=== PATIENT | female | born 1965 | race Caucasian/White ===

== ENCOUNTER 2018-04-07 21:59 | Emergency (ER) | payer SELFPAY ==
[2018-04-07] MEDS ORDERED: Lidocaine 1% with EPINEPHrine 1:100,000 20 ML MDV INJECT ONE (22:11)
--- NOTE | 2018-04-07 22:14 | EDM.PDOC ---
ED HPI GENERAL MEDICAL PROBLEM - General Chief Complaint: Laceration Stated Complaint: RIGHT HAND CUT ON GLASS Time Seen by Provider: 04/07/18 22:07 Source of Information: Reports: Patient History Limitations: Reports: Intoxication - History of Present Illness INITIAL COMMENTS - FREE TEXT/NARRATIVE: Patient was washing dishes and was cleaning a cup that actually had a broken glass piece and cut her right index finger right over the MCP joint. Mr. cheng, no other injury noted. Patient otherwise has been healthy. Has a history of some mild asthma, her last tetanus was 5 years ago. right Handed. 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: Dressing(s) right hand Pain Score (Numeric/FACES): 4 - Related Data Allergies Allergy/AdvReac Type Severity Reaction Status Date / Time No Known Allergies Allergy Verified 04/07/18 22:11 Home Meds: Home Meds Albuterol [Ventolin HFA] 2 puff INH ASDIRECTED PRN 04/07/18 [History] ED ROS GENERAL - Review of Systems Review Of Systems: See Below Musculoskeletal: Reports: Joint Pain Skin: Reports: Wound Neurological: Denies: Numbness, Tingling ED EXAM, SKIN/RASH Exam: See Below Exam Limited By: No Limitations General Appearance: Alert, WD/WN, No Apparent Distress Peripheral Pulses: 2+: Radial (R) Extremities: Normal Inspection, Normal Range of Motion, Other (Laceration just over the MCP joint of the second finger on the right hand. Just into the subcutaneous tissue measures 1.6 x 3 mm. Extensor mechanisms otherwise are intact. Assessment foreign body or glass noted with good light source.) ED SKIN PROCEDURES - Laceration/Wound Repair Right Hand Lac/Wound length In cm: 1.6 Appearance: Subcutaneous, Clean Distal NVT: Neuro & Vascular Intact, No Tendon Injury Anesthetic Type: Local Local Anesthesia - Lidocaine (Xylocaine): 1% with EPI Local Anesthetic Volume: 3cc Skin Prep: Saline, Sterile Drape Exploration/Debridement/Repair: Wound Explored, In a Bloodless Field, Explored to Base, No Foreign Material Found, Multiple Flaps Aligned Closed with: Sutures Suture Size: other (5-0) # of Sutures: 4 Sterile Dressing Applied: Nurse Tetanus Status Addressed: Yes Complications: No Progress/Comments: Patient tolerated procedure well Course - Vital Signs Text/Narrative:: Patient with a laceration over the knuckle of the right index finger. Does look like it's right over the joint and no joint involvement however but does look like it would require suturing. Patient had a tetanus within the last 5 years. Last Recorded V/S: Last Vital Signs Temp 97.6 F 04/07/18 22:06 Pulse 98 04/07/18 22:06 Resp 18 04/07/18 22:06 BP 151/89 H 04/07/18 22:06 Pulse Ox 97 04/07/18 22:06 - Orders/Labs/Meds Meds: Medications Discontinued Medications Generic Name Dose Route Start Last Admin Trade Name Patric PRN Reason Stop Dose Admin Lidocaine/Epinephrine 20 ml 04/07/18 22:11 Xylocaine 1% With Epinephrine 1:100,000 INJECT 04/07/18 22:12 ONETIME ONE Departure - Departure Time of Disposition: 22:55 Disposition: Home, Self-Care 01 Condition: Good Clinical Impression: Laceration of right index finger Qualifiers: Encounter type: initial encounter Damage to nail status: without damage Foreign body presence: without foreign body Qualified Code(s): S61.210A - Laceration without foreign body of right index finger without damage to nail, initial encounter - Discharge Information *PRESCRIPTION DRUG MONITORING PROGRAM REVIEWED*: Not Applicable *COPY OF PRESCRIPTION DRUG MONITORING REPORT IN PATIENT JUSTEN: Not Applicable Instructions: Laceration Care, Adult, Wound Care, Adult Referrals: Dennise Hernandez NP [Primary Care Provider] - Forms: ED Department Discharge, ED Return to Work/School Form Additional Instructions: Keep clean and dry for 24 hours, follow-up for suture removal in 7-10 days. Return sooner however if any signs of infection such as bleeding, pus, or swelling, pain, redness, red streaking, worse
== END 2018-04-07 23:06 | disposition home or self-care (01) ==
LOC: JD.ED 21:59
DX: S61.210A Laceration without foreign body of right index finger without damage to nail, initial encounter (principal); W25.XXXA Contact with sharp glass, initial encounter
CPT/HCPCS: 12001; 99283-25

== ENCOUNTER 2020-08-20 11:00 | Emergency (ER) | payer SELFPAY ==
[2020-08-20] MEDS ORDERED: Ondansetron 4 MG/2 ML SDV IVPUSH ONE (11:47)
[2020-08-20] MEDS ORDERED: Ketorolac 30 MG/ML SDV IVPUSH ONE (11:47)
[2020-08-20] MEDS ORDERED: Sodium Chloride 0.9% 1,000 ML IV ONE ×2 (11:47→14:47)
--- NOTE | 2020-08-20 11:50 | EDM.PDOC ---
ED HPI GENERAL MEDICAL PROBLEM - General Chief Complaint: Respiratory Problem Stated Complaint: EXPOSED TO COVID/HAVING SYMPTOMS Time Seen by Provider: 08/20/20 11:28 Source of Information: Reports: Patient, RN Notes Reviewed History Limitations: Reports: No Limitations - History of Present Illness INITIAL COMMENTS - FREE TEXT/NARRATIVE: Patient is a 54-year-old female who presents to the ED for her ongoing [id number] symptoms. Patient notes around 10 days ago, her children are home from college, and she believes she became exposed then. She has been symptomatic for the last 5 days with dry cough, headache, weakness, fatigue, chest discomfort and shortness of breath. She is also complaining of nausea/vomiting and has not been able to keep much for food or fluids down. She states that if she sips club soda slow she can sometimes keep this down. She is also complaining of her loss of smell and taste. She has not been evaluated for this illness prior to today. She is also complaining of not being able to lay flat due to shortness of breath and cough. She has a history of asthma, otherwise she denies any other past medical history. Primary care providers are Dr. Wilson and Dennise Hernandez. - Related Data Allergies Allergy/AdvReac Type Severity Reaction Status Date / Time No Known Allergies Allergy Verified 08/20/20 11:27 Home Meds: Home Meds Albuterol [Ventolin HFA] 2 puff INH ASDIRECTED PRN 04/07/18 [History] Past Medical History Respiratory History: Reports: Asthma Social & Family History - Family History Family Medical History: No Pertinent Family History - Tobacco Use Tobacco Use Status *Q: Never Tobacco User Second Hand Smoke Exposure: No - Caffeine Use Caffeine Use: Reports: None - Recreational Drug Use Recreational Drug Use: No ED ROS GENERAL - Review of Systems Review Of Systems: Comprehensive ROS is negative, except as noted in HPI. ED EXAM, GENERAL - Physical Exam Exam: See Below Exam Limited By: No Limitations General Appearance: Alert, WD/WN, No Apparent Distress Respiratory/Chest: No Respiratory Distress, Lungs Clear, Normal Breath Sounds, No Accessory Muscle Use, Chest Non-Tender Cardiovascular: Normal Peripheral Pulses, Regular Rate, Rhythm, No Edema Peripheral Pulses: 2+: Radial (L), Radial (R) Extremities: Normal Inspection, Normal Capillary Refill Neurological: Alert, Oriented, Normal Cognition, No Motor/Sensory Deficits Psychiatric: Normal Affect, Normal Mood Skin Exam: Warm, Dry, Intact, Normal Color, No Rash #1 Interpretation EKG Date: 08/20/20 Time: 12:06 Rhythm: NSR (sinus tach) Rate (Beats/Min): 104 [place]: Normal P-Wave: Present QRS: Normal ST-T: Normal QT: Prolonged (519) Comparison: NA - No Prior EKG EKG Interpretation Comments: No obvious ischemia or acute ST changes noted, reviewed by myself and Dr. Colbert. Course - Vital Signs Last Recorded V/S: Last Vital Signs Temp 97.5 F 08/20/20 11:25 Pulse 108 H 08/20/20 13:30 Resp 16 08/20/20 12:45 BP 128/78 08/20/20 13:30 Pulse Ox 93 L 08/20/20 13:30 - Orders/Labs/Meds Orders: Active Orders 24 hr Category Date Time Status EKG Documentation Completion [RC] AM Care 08/20/20 11:45 Active Peripheral IV Care [RC] . DIRECTED Care 08/20/20 11:47 Active Ang Chest [CT] Stat Exams 08/20/20 14:26 Ordered LIPASE [CHEM] Stat Lab 08/20/20 14:44 Ordered Sodium Chloride 0.9% [Normal Saline] 1,000 ml Med 08/20/20 14:47 Active IV ONETIME Sodium Chloride 0.9% [Saline Flush] Med 08/20/20 11:47 Active 10 ml FLUSH ASDIRECTED PRN Peripheral IV Insertion Adult [OM.PC] Routine Oth 08/20/20 11:46 Ordered Medication Orders Sodium Chloride (Normal Saline) 1,000 mls @ 500 mls/hr IV ONETIME ONE Stop: 08/20/20 16:46 Sodium Chloride (Saline Flush) 10 ml FLUSH ASDIRECTED PRN PRN Reason: Keep Vein Open Last Admin: 08/20/20 13:59 Dose: 10 ml Documented by: Admin: 08/20/20 12:15 Dose: 10 ml Documented by: JAVED Labs: Laboratory Tests 08/20/20 08/20/20 08/20/20 Range/Units 12:05 12:10 12:10 WBC 13.93 H (3.98-10.04) K/mm3 RBC 3.65 L (3.98-5.22) M/mm3 Hgb 11.5 (11.2-15.7) gm/dl Hct 30.8 L (34.1-44.9) % MCV 84.4 (79.4-94.8) fl MCH 31.5 (25.6-32.2) pg MCHC 37.3 H (32.2-35.5) g/dl RDW Std Deviation 56.6 H (36.4-46.3) fL Plt Count 323 (182-369) K/mm3 MPV 9.9 (9.4-12.3) fl Neutrophils % (Manual) 88 H (40-60) % Band Neutrophils % 0 (0-10) % Lymphocytes % (Manual) 4 L (20-40) % Atypical Lymphs % 0 % Monocytes % (Manual) 5 (2-10) % Eosinophils % (Manual) 0 L (0.7-5.8) % Basophils % (Manual) 3 H (0.1-1.2) Platelet Estimate Adequate Plt Morphology Comment See note Hypochromasia 1+ slight Anisocytosis 2+ moderate Macrocytosis 2+ moderate RBC Morph Comment Abnormal PT (9.7-12.0) SECONDS INR APTT (21.7-31.4) SECONDS D-Dimer, Quantitative (0.19-0.50) mg/L Sodium (136-145) mEq/L Potassium (3.5-5.1) mEq/L Chloride (98-107) mEq/L Carbon Dioxide (21-32) mEq/L Anion Gap (5-15) BUN (7-18) mg/dL Creatinine (0.55-1.02) mg/dL Est Cr Clr Drug Dosing mL/min Estimated GFR (MDRD) (>60) mL/min BUN/Creatinine Ratio (14-18) Glucose (74-106) mg/dL Serum Osmolality (280-300) mosm/kg Lactic Acid (0.4-2.0) mmol/L Calcium (8.5-10.1) mg/dL Magnesium (1.8-2.4) mg/dl Ferritin (8-252) ng/ml Total Bilirubin (0.2-1.0) mg/dL GGT (5-55) U/L AST (15-37) U/L ALT (14-59) U/L Alkaline Phosphatase (46-116) U/L Lactate Dehydrogenase (81-234) U/L Troponin I (0.00-0.056) ng/mL C-Reactive Protein 8.2 H* (<1.0) mg/dL NT-Pro-B Natriuret Pep (0-125) pg/mL Total Protein (6.4-8.2) g/dl Albumin (3.4-5.0) g/dl Globulin gm/dL Albumin/Globulin Ratio (1-2) Urine Color (Yellow) Urine Appearance (Clear) Urine pH (5.0-8.0) Ur Specific [place] (1.005-1.030) Urine Protein (Negative) Urine Glucose (UA) (Negative) Urine Ketones (Negative) Urine Occult Blood (Negative) Urine Nitrite (Negative) Urine Bilirubin (Negative) Urine Urobilinogen (0.2-1.0) Ur Leukocyte Esterase (Negative) Urine RBC (0-5) /hpf Urine WBC (0-5) /hpf Ur Squamous Epith Cells (0-5) /hpf Urine Bacteria (FEW) /hpf Urine Mucus (FEW) /hpf Salicylates (2.8-20) mg/dL Acetaminophen (10-30) ug/mL Ethyl Alcohol (0.00) gm% Hepatitis C Antibody (NEGATIVE) Influenza Type A RNA Negative (NEGATIVE) Influenza Type B RNA Negative (NEGATIVE) SARS-CoV-2 RNA (DMITRY) Negative (NEGATIVE) 08/20/20 08/20/20 08/20/20 Range/Units 12:10 12:10 12:10 WBC (3.98-10.04) K/mm3 RBC (3.98-5.22) M/mm3 Hgb (11.2-15.7) gm/dl Hct (34.1-44.9) % MCV (79.4-94.8) fl MCH (25.6-32.2) pg MCHC (32.2-35.5) g/dl RDW Std Deviation (36.4-46.3) fL Plt Count (182-369) K/mm3 MPV (9.4-12.3) fl Neutrophils % (Manual) (40-60) % Band Neutrophils % (0-10) % Lymphocytes % (Manual) (20-40) % Atypical Lymphs % % Monocytes % (Manual) (2-10) % Eosinophils % (Manual) (0.7-5.8) % Basophils % (Manual) (0.1-1.2) Platelet Estimate Plt Morphology Comment Hypochromasia Anisocytosis Macrocytosis RBC Morph Comment PT 19.8 H (9.7-12.0) SECONDS INR 1.87 APTT 43.6 H (21.7-31.4) SECONDS D-Dimer, Quantitative 6.94 H (0.19-0.50) mg/L Sodium 120 L (136-145) mEq/L Potassium 3.4 L (3.5-5.1) mEq/L Chloride 85 L (98-107) mEq/L Carbon Dioxide 26 (21-32) mEq/L Anion Gap 12.4 (5-15) BUN 3 L (7-18) mg/dL Creatinine 0.7 (0.55-1.02) mg/dL Est Cr Clr Drug Dosing 80.26 mL/min Estimated GFR (MDRD) > 60 (>60) mL/min BUN/Creatinine Ratio 4.3 L (14-18) Glucose 85 (74-106) mg/dL Serum Osmolality (280-300) mosm/kg Lactic Acid (0.4-2.0) mmol/L Calcium 7.9 L (8.5-10.1) mg/dL Magnesium 1.8 (1.8-2.4) mg/dl Ferritin (8-252) ng/ml Total Bilirubin 5.5 H (0.2-1.0) mg/dL GGT (5-55) U/L AST 306 H (15-37) U/L ALT 56 (14-59) U/L Alkaline Phosphatase 320 H (46-116) U/L Lactate Dehydrogenase 140 (81-234) U/L Troponin I < 0.017 (0.00-0.056) ng/mL C-Reactive Protein (<1.0) mg/dL NT-Pro-B Natriuret Pep 324 H (0-125) pg/mL Total Protein 7.5 (6.4-8.2) g/dl Albumin 1.6 L (3.4-5.0) g/dl Globulin 5.9 gm/dL Albumin/Globulin Ratio 0.3 L (1-2) Urine Color (Yellow) Urine Appearance (Clear) Urine pH (5.0-8.0) Ur Specific [place] (1.005-1.030) Urine Protein (Negative) Urine Glucose (UA) (Negative) Urine Ketones (Negative) Urine Occult Blood (Negative) Urine Nitrite (Negative) Urine Bilirubin (Negative) Urine Urobilinogen (0.2-1.0) Ur Leukocyte Esterase (Negative) Urine RBC (0-5) /hpf Urine WBC (0-5) /hpf Ur Squamous Epith Cells (0-5) /hpf Urine Bacteria (FEW) /hpf Urine Mucus (FEW) /hpf Salicylates (2.8-20) mg/dL Acetaminophen (10-30) ug/mL Ethyl Alcohol (0.00) gm% Hepatitis C Antibody (NEGATIVE) Influenza Type A RNA (NEGATIVE) Influenza Type B RNA (NEGATIVE) SARS-CoV-2 RNA (DMITRY) (NEGATIVE) 08/20/20 08/20/20 08/20/20 Range/Units 12:10 12:10 12:10 WBC (3.98-10.04) K/mm3 RBC (3.98-5.22) M/mm3 Hgb (11.2-15.7) gm/dl Hct (34.1-44.9) % MCV (79.4-94.8) fl MCH (25.6-32.2) pg MCHC (32.2-35.5) g/dl RDW Std Deviation (36.4-46.3) fL Plt Count (182-369) K/mm3 MPV (9.4-12.3) fl Neutrophils % (Manual) (40-60) % Band Neutrophils % (0-10) % Lymphocytes % (Manual) (20-40) % Atypical Lymphs % % Monocytes % (Manual) (2-10) % Eosinophils % (Manual) (0.7-5.8) % Basophils % (Manual) (0.1-1.2) Platelet Estimate Plt Morphology Comment Hypochromasia Anisocytosis Macrocytosis RBC Morph Comment PT (9.7-12.0) SECONDS INR APTT (21.7-31.4) SECONDS D-Dimer, Quantitative (0.19-0.50) mg/L Sodium (136-145) mEq/L Potassium (3.5-5.1) mEq/L Chloride (98-107) mEq/L Carbon Dioxide (21-32) mEq/L Anion Gap (5-15) BUN (7-18) mg/dL Creatinine (0.55-1.02) mg/dL Est Cr Clr Drug Dosing mL/min Estimated GFR (MDRD) (>60) mL/min BUN/Creatinine Ratio (14-18) Glucose (74-106) mg/dL Serum Osmolality 278 L (280-300) mosm/kg Lactic Acid (0.4-2.0) mmol/L Calcium (8.5-10.1) mg/dL Magnesium (1.8-2.4) mg/dl Ferritin 314 H (8-252) ng/ml Total Bilirubin (0.2-1.0) mg/dL GGT (5-55) U/L AST (15-37) U/L ALT (14-59) U/L Alkaline Phosphatase (46-116) U/L Lactate Dehydrogenase (81-234) U/L Troponin I (0.00-0.056) ng/mL C-Reactive Protein (<1.0) mg/dL NT-Pro-B Natriuret Pep (0-125) pg/mL Total Protein (6.4-8.2) g/dl Albumin (3.4-5.0) g/dl Globulin gm/dL Albumin/Globulin Ratio (1-2) Urine Color (Yellow) Urine Appearance (Clear) Urine pH (5.0-8.0) Ur Specific [place] (1.005-1.030) Urine Protein (Negative) Urine Glucose (UA) (Negative) Urine Ketones (Negative) Urine Occult Blood (Negative) Urine Nitrite (Negative) Urine Bilirubin (Negative) Urine Urobilinogen (0.2-1.0) Ur Leukocyte Esterase (Negative) Urine RBC (0-5) /hpf Urine WBC (0-5) /hpf Ur Squamous Epith Cells (0-5) /hpf Urine Bacteria (FEW) /hpf Urine Mucus (FEW) /hpf Salicylates (2.8-20) mg/dL Acetaminophen 0 L (10-30) ug/mL Ethyl Alcohol (0.00) gm% Hepatitis C Antibody (NEGATIVE) Influenza Type A RNA (NEGATIVE) Influenza Type B RNA (NEGATIVE) SARS-CoV-2 RNA (DMITRY) (NEGATIVE) 08/20/20 08/20/20 08/20/20 Range/Units 12:10 12:10 12:10 WBC (3.98-10.04) K/mm3 RBC (3.98-5.22) M/mm3 Hgb (11.2-15.7) gm/dl Hct (34.1-44.9) % MCV (79.4-94.8) fl MCH (25.6-32.2) pg MCHC (32.2-35.5) g/dl RDW Std Deviation (36.4-46.3) fL Plt Count (182-369) K/mm3 MPV (9.4-12.3) fl Neutrophils % (Manual) (40-60) % Band Neutrophils % (0-10) % Lymphocytes % (Manual) (20-40) % Atypical Lymphs % % Monocytes % (Manual) (2-10) % Eosinophils % (Manual) (0.7-5.8) % Basophils % (Manual) (0.1-1.2) Platelet Estimate Plt Morphology Comment Hypochromasia Anisocytosis Macrocytosis RBC Morph Comment PT (9.7-12.0) SECONDS INR APTT (21.7-31.4) SECONDS D-Dimer, Quantitative (0.19-0.50) mg/L Sodium (136-145) mEq/L Potassium (3.5-5.1) mEq/L Chloride (98-107) mEq/L Carbon Dioxide (21-32) mEq/L Anion Gap (5-15) BUN (7-18) mg/dL Creatinine (0.55-1.02) mg/dL Est Cr Clr Drug Dosing mL/min Estimated GFR (MDRD) (>60) mL/min BUN/Creatinine Ratio (14-18) Glucose (74-106) mg/dL Serum Osmolality (280-300) mosm/kg Lactic Acid (0.4-2.0) mmol/L Calcium (8.5-10.1) mg/dL Magnesium (1.8-2.4) mg/dl Ferritin (8-252) ng/ml Total Bilirubin (0.2-1.0) mg/dL GGT 245 H (5-55) U/L AST (15-37) U/L ALT (14-59) U/L Alkaline Phosphatase (46-116) U/L Lactate Dehydrogenase (81-234) U/L Troponin I (0.00-0.056) ng/mL C-Reactive Protein (<1.0) mg/dL NT-Pro-B Natriuret Pep (0-125) pg/mL Total Protein (6.4-8.2) g/dl Albumin (3.4-5.0) g/dl Globulin gm/dL Albumin/Globulin Ratio (1-2) Urine Color (Yellow) Urine Appearance (Clear) Urine pH (5.0-8.0) Ur Specific [place] (1.005-1.030) Urine Protein (Negative) Urine Glucose (UA) (Negative) Urine Ketones (Negative) Urine Occult Blood (Negative) Urine Nitrite (Negative) Urine Bilirubin (Negative) Urine Urobilinogen (0.2-1.0) Ur Leukocyte Esterase (Negative) Urine RBC (0-5) /hpf Urine WBC (0-5) /hpf Ur Squamous Epith Cells (0-5) /hpf Urine Bacteria (FEW) /hpf Urine Mucus (FEW) /hpf Salicylates < 0.2 L (2.8-20) mg/dL Acetaminophen (10-30) ug/mL Ethyl Alcohol 0.09 (0.00) gm% Hepatitis C Antibody (NEGATIVE) Influenza Type A RNA (NEGATIVE) Influenza Type B RNA (NEGATIVE) SARS-CoV-2 RNA (DMITRY) (NEGATIVE) 08/20/20 08/20/20 08/20/20 Range/Units 12:10 12:10 14:15 WBC (3.98-10.04) K/mm3 RBC (3.98-5.22) M/mm3 Hgb (11.2-15.7) gm/dl Hct (34.1-44.9) % MCV (79.4-94.8) fl MCH (25.6-32.2) pg MCHC (32.2-35.5) g/dl RDW Std Deviation (36.4-46.3) fL Plt Count (182-369) K/mm3 MPV (9.4-12.3) fl Neutrophils % (Manual) (40-60) % Band Neutrophils % (0-10) % Lymphocytes % (Manual) (20-40) % Atypical Lymphs % % Monocytes % (Manual) (2-10) % Eosinophils % (Manual) (0.7-5.8) % Basophils % (Manual) (0.1-1.2) Platelet Estimate Plt Morphology Comment Hypochromasia Anisocytosis Macrocytosis RBC Morph Comment PT (9.7-12.0) SECONDS INR APTT (21.7-31.4) SECONDS D-Dimer, Quantitative (0.19-0.50) mg/L Sodium (136-145) mEq/L Potassium (3.5-5.1) mEq/L Chloride (98-107) mEq/L Carbon Dioxide (21-32) mEq/L Anion Gap (5-15) BUN (7-18) mg/dL Creatinine (0.55-1.02) mg/dL Est Cr Clr Drug Dosing mL/min Estimated GFR (MDRD) (>60) mL/min BUN/Creatinine Ratio (14-18) Glucose (74-106) mg/dL Serum Osmolality (280-300) mosm/kg Lactic Acid 5.3 H* (0.4-2.0) mmol/L Calcium (8.5-10.1) mg/dL Magnesium (1.8-2.4) mg/dl Ferritin (8-252) ng/ml Total Bilirubin (0.2-1.0) mg/dL GGT (5-55) U/L AST (15-37) U/L ALT (14-59) U/L Alkaline Phosphatase (46-116) U/L Lactate Dehydrogenase (81-234) U/L Troponin I (0.00-0.056) ng/mL C-Reactive Protein (<1.0) mg/dL NT-Pro-B Natriuret Pep (0-125) pg/mL Total Protein (6.4-8.2) g/dl Albumin (3.4-5.0) g/dl Globulin gm/dL Albumin/Globulin Ratio (1-2) Urine Color Dark yellow (Yellow) Urine Appearance Clear (Clear) Urine pH 6.0 (5.0-8.0) Ur Specific [place] 1.015 (1.005-1.030) Urine Protein Negative (Negative) Urine Glucose (UA) Negative (Negative) Urine Ketones Negative (Negative) Urine Occult Blood Negative (Negative) Urine Nitrite Negative (Negative) Urine Bilirubin 2+ H (Negative) Urine Urobilinogen 1.0 (0.2-1.0) Ur Leukocyte Esterase Negative (Negative) Urine RBC Not seen (0-5) /hpf Urine WBC 0-5 (0-5) /hpf Ur Squamous Epith Cells 5-10 H (0-5) /hpf Urine Bacteria Rare (FEW) /hpf Urine Mucus Not seen (FEW) /hpf Salicylates (2.8-20) mg/dL Acetaminophen (10-30) ug/mL Ethyl Alcohol (0.00) gm% Hepatitis C Antibody Negative (NEGATIVE) Influenza Type A RNA (NEGATIVE) Influenza Type B RNA (NEGATIVE) SARS-CoV-2 RNA (DMITRY) (NEGATIVE) Meds: Medications Generic Name Dose Route Start Last Admin Trade Name Freq PRN Reason Stop Dose Admin Sodium Chloride 1,000 mls @ 500 mls/hr 08/20/20 14:47 Normal Saline IV 08/20/20 16:46 ONETIME ONE Sodium Chloride 10 ml 08/20/20 11:47 08/20/20 13:59 Saline Flush FLUSH 10 ml ASDIRECTED PRN Administration Keep Vein Open Discontinued Medications Generic Name Dose Route Start Last Admin Trade Name Freq PRN Reason Stop Dose Admin Sodium Chloride 1,000 mls @ 500 mls/hr 08/20/20 11:47 08/20/20 12:14 Normal Saline IV 08/20/20 13:46 500 mls/hr ONETIME ONE Administration Iopamidol 100 ml 08/20/20 13:35 08/20/20 13:59 Isovue-300 (61%) IVPUSH 08/20/20 13:36 100 ml ONETIME ONE Administration Iopamidol 25 ml 08/20/20 13:35 08/20/20 13:59 Isovue-300 (61%) IVPUSH 08/20/20 13:36 25 ml ONETIME ONE Administration Ketorolac Tromethamine 30 mg 08/20/20 11:47 08/20/20 12:15 Toradol IVPUSH 08/20/20 11:48 30 mg ONETIME ONE Administration Ondansetron HCl 4 mg 08/20/20 11:47 08/20/20 12:14 Zofran IVPUSH 08/20/20 11:48 4 mg ONETIME ONE Administration - Re-Assessments/Exams Free Text/Narrative Re-Assessment/Exam: 08/20/20 11:49 Patient presents to the ED for evaluation of her ongoing [id number] symptoms. We will go ahead get an IV placed, obtain labs, chest x-ray, EKG to evaluate for COVID-19. Patient does have a history of asthma, and would likely be a candidate for bamlanivimab treatment. 08/20/20 13:06 Patient's labs have returned, white cell count is 13.9 with 88% neutrophils, PT is elevated at 19.8, PTT elevated at 43.6, D-dimer elevated at 6.94. Patient's sodium level is markedly decreased at 120, ferritin is elevated at 314, bilirubin elevated at 5.5, AST elevated at 306, ALP elevated at 320, BNP elevated at 324. LDH was within normal limits, patient's Covid screen is negative for today's purposes however symptoms and labs would give her clinical diagnosis of COVID-19. Due to her hyponatremia, she would likely benefit from being hospitalized with close observation. I will call our hospitalist about acceptance. 08/20/20 14:20 Due to the patient's liver enzymes, I did order abdomen pelvis CT with IV contrast I did look over these images with Dr. Colbert, and there does appear to be quite a bit of free fluid in the abdomen compatible with ascites. The gallbladder is distended. No other acute abnormalities are appreciated. He did suggest doing a hepatitis C test for evaluation however it is likely that the patient is a drinker causing some of the issues. Nursing staff did notice some baseline shaking when she reevaluated her. I have ordered a blood alcohol level off of the labs already drawn. Her Tylenol and salicylate level were unremarkable, I thought maybe she would have some derangement due to excessive Excedrin Migraine use. 08/20/20 15:14 Dr. Barr thought that the patient would benefit from ICU status hospitalization, I did call [facility] [place] and Talked with the heel layer, and he was concerned about why the patient needed ICU status, and wanted to talk to Dr. Barr and requested that he call. I did call Dr. Wren back, and he went over the lab results that I was already aware of, and states that the patient could turn into a mess over the night, and he was concerned as if she needed hospitalization here he would hospitalize her to the ICU status and he does not have beds at this time. 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 I did talk her into staying for a second bag of fluids as her lactic acid was elevated at 5.3. I directed her to please follow-up with her regular care provider within 24 to 48 hours for recheck and examination, and if things were to worsen, she is to come straight back to the ER. She verbalized understanding at this time. Departure - Departure Time of Disposition: 15:18 Disposition: Home, Self-Care 01 Condition: Serious Clinical Impression: Suspected 2019 novel coronavirus infection, Elevated liver function tests, Elevated bilirubin Ascites Qualifiers: Ascites type: other type Qualified Code(s): R18.8 - Other ascites - Discharge Information *PRESCRIPTION DRUG MONITORING PROGRAM REVIEWED*: No *COPY OF PRESCRIPTION DRUG MONITORING REPORT IN PATIENT JUSTEN: No Instructions: Prevent the Spread of COVID-19 if You Are Sick - [facility] Referrals: Dennise Hernandez, [employer] [Primary Care Provider] - Forms: ED Department Discharge Additional Instructions: You were evaluated in the ER today for your multiple complaints, and possible COVID-19 infection. You had multiple lab abnormalities, and ascites on your CT, which is very serious. This means you have it in your abdomen, that has not been determined as where it is coming from. Your sodium is very low, you were given IV fluids for this, along with your lactic acid being quite high, again the fluid should help this. Please continue to monitor your symptoms at home very carefully, if anything at all makes you more sick, please return to the ER immediately for evaluation. I highly and strongly recommend you follow-up with your regular care provider, s ometime within the next 24 to 48 hours for reevaluation and to make sure things are getting better as expected. Please note that your condition is very serious, and you could have quite a few medical complications due to this. It was highly recommended that you be hospitalized for fluids, and to monitor your labs and electrolyte status however you declined at this time. Please return to the ER if your symptoms change or worsen. Sepsis Event Note (ED) - Evaluation Sepsis Screening Result: No Definite Risk - Focused Exam Vital Signs: Vital Signs Temp Pulse Resp BP Pulse Ox 08/20/20 13:30 108 H 128/78 93 L 08/20/20 12:45 101 H 16 120/83 92 L 08/20/20 11:25 97.5 F 115 H 16 144/103 H 98 - My Orders Last 24 Hours: My Active Orders 08/20/20 11:45 EKG Documentation Completion [RC] AM 08/20/20 11:46 Peripheral IV Insertion Adult [OM.PC] Routine 08/20/20 11:47 Peripheral IV Care [RC] . DIRECTED Sodium Chloride 0.9% [Saline Flush] 10 ml FLUSH ASDIRECTED PRN 08/20/20 14:26 Ang Chest [CT] Stat 08/20/20 14:44 LIPASE [CHEM] Stat 08/20/20 14:47 Sodium Chloride 0.9% [Normal Saline] 1,000 ml IV ONETIME - Assessment/Plan Last 24 Hours: My Active Orders 08/20/20 11:45 EKG Documentation Completion [RC] AM 08/20/20 11:46 Peripheral IV Insertion Adult [OM.PC] Routine 08/20/20 11:47 Peripheral IV Care [RC] . DIRECTED Sodium Chloride 0.9% [Saline Flush] 10 ml FLUSH ASDIRECTED PRN 08/20/20 14:26 Ang Chest [CT] Stat 08/20/20 14:44 LIPASE [CHEM] Stat 08/20/20 14:47 Sodium Chloride 0.9% [Normal Saline] 1,000 ml IV ONETIME
[2020-08-20] MEDS: Sodium Chloride 0.9% 10 ML Syringe FLUSH PRN ×2 (12:15→13:59)
[2020-08-20 12:59] LABS: CORONAVIRUS COVID-19 NAA NEGATIVE (NEGATIVE)
--- NOTE | 2020-08-20 13:04 | CR ---
Chest: Portable view of the chest was obtained. Comparison: No prior chest imaging is available. Heart size and mediastinum are within normal limits for portable technique. Slight density within the lateral left costophrenic angle is seen due to atelectasis or minimal pleural effusion. Lungs otherwise are clear. Bony structures show nothing acute. Impression: 1. Slight blunting of the lateral left costophrenic angle as noted above. 2. Nothing acute is otherwise seen. Diagnostic code #2
[2020-08-20] MEDS ORDERED: Iopamidol 612 MG/ML 100 ML Bottle IVPUSH ONE (13:35)
[2020-08-20] MEDS ORDERED: Iopamidol 612 MG/ML 50 ML SDV IVPUSH ONE (13:35)
--- NOTE | 2020-08-20 14:35 | CT ---
CT abdomen and pelvis Technique: Multiple axial sections were obtained from above the dome of the diaphragm inferiorly to the pubic symphysis. Intravenous contrast was utilized. No oral contrast has been given. Delayed images were also obtained through the bladder. Comparison: No previous study. Findings: Very small pleural effusions are seen bilaterally. Bibasilar atelectasis is noted which is more prominent on the right side. Partially visualized bilateral breast prostheses are seen. Ascites is seen around the liver and around the spleen with ascites continuing into the pelvis. Liver shows diffuse fatty infiltration. Liver is also somewhat enlarged. Spleen appears within normal limits. Adrenal glands show no nodule. Gallbladder is distended. Pancreas shows surrounding fluid either due to pancreatitis or representing ascitic fluid. Kidneys show symmetric contrast enhancement. Small low density finding is seen within both kidneys. These are too small to accurately measure by Hounsfield units but most likely represent a small cyst within each kidney. Aorta shows no aneurysm. No retroperitoneal adenopathy or mesenteric abnormalities are seen. Appendix is seen and appears to be within normal limits. No discrete pelvic abnormality is appreciated. Bony structures show multiple small vague low-density findings. Uncertain if this is due to osteopenia or represents early metastatic disease. Diffuse subcutaneous edema is seen within the abdominal wall. Delayed images show contrast within the bladder. Impression: 1. Small bilateral pleural effusions with bibasilar atelectasis. 2. Ascites around the liver and spleen and within the pelvis. 3. Fatty infiltration within the liver with hepatomegaly. 4. Ascites around the pancreas either due to pancreatitis or representing ascitic fluid. 5. Gallbladder is enlarged but no abnormal calcifications are seen within the gallbladder. 6. Soft tissue edema within the subcutaneous fat within the abdomen. 7. Other findings as noted above which are most likely nonacute. Diagnostic code #5
== END 2020-08-20 16:15 | disposition home or self-care (01) ==
LOC: JD.ED 11:00
DX: R18.8 Other ascites (principal); R79.89 Other specified abnormal findings of blood chemistry; R79.1 Abnormal coagulation profile; J45.909 Unspecified asthma, uncomplicated; Z20.822 Contact with and (suspected) exposure to COVID-19
CPT/HCPCS: 0240U; 36415; 71045; 74177; 80053; 80143; 80179; 80307; 81001; 82728; 82977; 83605; 83615; 83690; 83735; 83880; 83930; 84484; 85007; 85027; 85379; 85610; 85730; 86140; 86803; 93005; 96374; 96375; 99285; J1885; J2405; J7030; Q9967; 93010; 99284

== ENCOUNTER 2020-09-07 04:46 | Emergency (ER) | payer SELFPAY ==
--- NOTE | 2020-09-07 05:31 | EDM.PDOC ---
ED HPI GENERAL MEDICAL PROBLEM - General Chief Complaint: ENT Problem Stated Complaint: NOSE BLEED Time Seen by Provider: 09/07/20 04:57 Source of Information: Reports: Patient History Limitations: Reports: No Limitations - History of Present Illness INITIAL COMMENTS - FREE TEXT/NARRATIVE: Mrs. Whitney is a 54-year-old woman who now presents the ED with left epistaxis on and off since 19:00 last night. She is likely anticoagulated due to cirrhosis, diagnosed on 08/25/2019 at [facility], when she was admitted for ascites. The cause of her cirrhosis is not yet known; it could be due to excess alcohol, but it could also be due to taking large doses of herbal supplements. She underwent a paracentesis. She recalls being told that she was anemic, although not low enough to require a PRBC transfusion. She was discharged home on lactulose. No recent trauma to the nose, and the patient reports no prior episodes of epistaxis. Here in the ED, the patient is found to be tachycardic at 120 bpm. She is otherwise hemodynamically stable, afebrile, saturating 95% on room air. Other than her recent ascites and current epistaxis, the patient denies having a recent fever, chills, sore throat, ear pain, nasal or sinus congestion, cough, dyspnea, chest pain, palpitations, nausea, vomiting, constipation, diarrhea, abdominal pain, urinary symptoms, recent weight gain or weight loss, recent bloody bowel movements or black bowel movements, recent joint aches, headaches, or rashes. The patient's PCP is Dr. Michael Wilson. Her Gender Studies Professor is Dr. Sloane Solo. She does not recall the name of her Horse Trekking Guide. She has not received an influenza vaccine this season, and declined an offer to receive one here in the ED. Abdomen Pain Score (Numeric/FACES): 2 - Related Data Allergies Allergy/AdvReac Type Severity Reaction Status Date / Time No Known Allergies Allergy Verified 09/07/20 05:00 Home Meds: Home Meds Albuterol [Ventolin HFA] 2 puff INH ASDIRECTED PRN 04/07/18 [History] Lactulose [Cephulac] 10 gm PO DAILY 09/07/20 [History] Past Medical History Respiratory History: Reports: Asthma (suspected, not tested) Gastrointestinal History: Reports: Cirrhosis (dx'd 08/25/2020) Oncologic (Cancer) History: Reports: Cervix (s/p trachelectomy) - Past Surgical History HEENT Surgical History: Reports: Oral Surgery (dental extractions) Female Surgical History: Reports: Breast Implant, Section (x 1), Other (See Below) (Trachelectomy for cervical cancer) Dermatological Surgical History: Reports: Other (See Below) (Abdominoplasty) Social & Family History - Tobacco Use Tobacco Use Status *Q: Never Tobacco User - Caffeine Use Caffeine Use: Reports: None - Alcohol Use Alcohol Use History: Yes Date/Time of Last Drink Comment: Heavy until Jul 2020 - Recreational Drug Use Recreational Drug Use: No - Living Situation & Occupation Living situation: Reports: (), Alone Occupation: Unemployed ED ROS ENT - Review of Systems Review Of Systems: Comprehensive ROS is negative, except as noted in HPI. ED EXAM, ENT - Physical Exam Exam: See Below Exam Limited By: No Limitations General Appearance: Alert, WD/WN, No Apparent Distress Eye Exam: Bilateral Eye: EOMI, Other (scleral icterus) Ears: Normal External Exam, Hearing Grossly Normal Nose: Active Bleeding (left nostril) Mouth/Throat: Normal Inspection, Normal Gums, Normal Lips, Normal Teeth, Other (Blood running down posterior oropharynx) Head: Atraumatic, Normocephalic Neck: Normal Inspection, Full Range of Motion Respiratory/Chest: No Respiratory Distress, Lungs Clear, Normal Breath Sounds, No Accessory Muscle Use Cardiovascular: Normal Peripheral Pulses, No Gallop, No JVD, No Murmur, No Rub, Tachycardia (regular) GI/Abdominal: Normal Bowel Sounds, Soft, Non-Tender, No Organomegaly, No Disten tion, No Abnormal Bruit, No Mass Back: Normal Inspection, Full Range of Motion Extremities: Normal Inspection, Normal Range of Motion, Normal Capillary Refill Neurological: Alert, Oriented, Normal Cognition, No Motor/Sensory Deficits Psychiatric: Depressed Mood Skin: Warm, Dry, Intact, No Rash, Jaundice ED ENT PROCEDURES - Epistaxis Procedure Indication: Epistaxis, Uncontrolled Recent anticoagulants/antiplatlets: Yes (anticoagulated due to cirrhosis) Uncontrolled HTN: No Recent septal/nasal surgery: No Site of bleeding: Left Nare, Anterior Clearing of clots: Patient Blew Nose Topical Meds: Topical Cocaine Ice pack to area: No Anterior Packing: Inflatable Nasal Tampon (5.5 cm RapidRhino) Complications: No Course - Vital Signs Last Recorded V/S: Last Vital Signs Temp 36.1 C 09/07/20 04:54 Pulse 120 H 09/07/20 04:54 Resp 20 09/07/20 04:54 BP 90/71 09/07/20 04:54 Pulse Ox 95 09/07/20 04:54 - Orders/Labs/Meds Orders: Active Orders 24 hr Category Date Time Status CBC WITH MANUAL DIFF [HEME] Stat Lab 09/07/20 05:35 Results Labs: Laboratory Tests 09/07/20 09/07/20 Range/Units 05:35 05:35 WBC 12.87 H (3.98-10.04) K/mm3 RBC 2.85 L (3.98-5.22) M/mm3 Hgb 9.1 L D (11.2-15.7) gm/dl Hct 26.2 L (34.1-44.9) % MCV 91.9 D (79.4-94.8) fl MCH 31.9 (25.6-32.2) pg MCHC 34.7 (32.2-35.5) g/dl RDW Std Deviation 74.9 H (36.4-46.3) fL Plt Count 272 (182-369) K/mm3 MPV 10.7 (9.4-12.3) fl PT 23.6 H (9.7-12.0) SECONDS INR 2.24 APTT 44.2 H (21.7-31.4) SECONDS Meds: Medications Discontinued Medications Generic Name Dose Route Start Last Admin Trade Name Carlitoq PRN Reason Stop Dose Admin Cocaine HCl 1 ml 09/07/20 05:07 Cocaine Hcl TOP 09/07/20 05:08 ONETIME STA - Re-Assessments/Exams Free Text/Narrative Re-Assessment/Exam: 09/07/20 05:24 I had the patient gently blow her left nostril to clear out any blood clots, then I applied a total of 8 cocaine-soaked cotton-tipped swabs into her left nostril, however, the bleeding did not let up at all. I therefore instilled a 5.5 cm RapidRhino into her left nostril. I will recheck it after about 10 minutes to check the pressure in the balloon and to see that the bleeding has stopped. 09/07/20 05:36 After 10 minutes, I rechecked the balloon, finding it to still be of adequate pressure. I did not need to add additional air. I had her gargle and clear out the back of her throat, and at present there is no blood in the back of her throat or sign of bleeding. The RapidRhino is to be working well, but I will recheck her. 09/07/20 06:18 The patient's CBC is remarkable for a WBC count elevated at 12.87 with an H/H depressed at 9.1/26.2, and the remainder of her CBC being unremarkable. Her PT is elevated at 23.6 with an INR elevated 2.26, and PTT elevated at 44.2. 09/07/20 06:25 Test results discussed with the patient. While she is anemic, her H/H not so low as to require a PRBC transfusion. On reexamination, there is still no evidence of bleeding, and the balloon is still adequately inflated. I will discharge her home. I would like her to follow-up with Dr. Wilson tomorrow, 09/08/2019, for balloon removal. She states that she will be following up with the straight slicing machine operator who took care of her at [place], Dr. Stoll, however, I do not want the patient to wait until Friday to have the balloon removed. The balloon is removed, I recommended to the patient that she apply a thin smear of petroleum jelly to each side of her nasal septum, 2 or 3 times a day, to help keep the mucous membranes moist. I also suggested to her that she get a humidifier or vaporizer for her home, to keep the humidity up. Departure - Departure Time of Disposition: 06:27 Disposition: Home, Self-Care 01 Condition: Good Clinical Impression: Left-sided epistaxis, Coagulopathy, Cirrhosis, Anemia - Discharge Information *PRESCRIPTION DRUG MONITORING PROGRAM REVIEWED*: Not Applicable *COPY OF PRESCRIPTION DRUG MONITORING REPORT IN PATIENT JUSTEN: Not Applicable Referrals: Sloane Solo MD [Ordering Only Provider] - Michael Wilson MD [Primary Care Provider] - Forms: ED Department Discharge Additional Instructions: You were seen in the emergency room for an on and off left-sided nosebleed since 7:00 last night. A 5.5 cm RapidRhino wound was placed in your left nostril, with successful stoppage of the nosebleed. You may take [id number] Tylenol, no more than 1 g/day, as needed for discomfort. We recommend that you follow-up with your PCP, Dr. Michael Wilson, tomorrow, 09/08/2020, for removal of the balloon. Once the balloon is removed, we recommend that you apply a thin smear of petroleum jelly to each side of your nasal septum, 2 or 3 times a day, to help keep the mucous membrane moist. We also recommend that you consider purchasing a humidifier or vaporizer for your home, to keep the humidity in your home up. If any other problems, please do not hesitate to return to the ER. Sepsis Event Note (ED) - Evaluation Sepsis Screening Result: No Definite Risk - Focused Exam Vital Signs: Vital Signs Temp Pulse Resp BP Pulse Ox 09/07/20 04:54 36.1 C 120 H 20 90/71 95 - My Orders Last 24 Hours: My Active Orders 09/07/20 05:35 CBC WITH MANUAL DIFF [HEME] Stat - Assessment/Plan Last 24 Hours: My Active Orders 09/07/20 05:35 CBC WITH MANUAL DIFF [HEME] Stat
== END 2020-09-07 06:40 | disposition home or self-care (01) ==
LOC: JD.ED 04:46
DX: R04.0 Epistaxis (principal); D68.9 Coagulation defect, unspecified; K74.60 Unspecified cirrhosis of liver; D64.9 Anemia, unspecified; J45.909 Unspecified asthma, uncomplicated
CPT/HCPCS: 30901; 30903; 36415; 85007; 85027; 85610; 85730; 99283; 99283-25

== ENCOUNTER 2020-10-02 14:11 | Emergency (ER) | payer SELFPAY ==
[2020-10-02] MEDS ORDERED: Sodium Chloride 0.9% 1,000 ML IV STA (15:26)
[2020-10-02] MEDS ORDERED: Potassium Chloride 20 MEQ Tab.ER PO ONE (15:27)
[2020-10-02] MEDS ORDERED: Magnesium Sulfate/Water 2 GM/50 ML BAG IV SCH (15:30)
[2020-10-02] MEDS ORDERED: Magnesium Sulfate/Water 2 GM/50 ML BAG IV ONE (15:43)
--- NOTE | 2020-10-02 15:53 | EDM.PDOC ---
ED HPI GENERAL MEDICAL PROBLEM - General Chief Complaint: General Stated Complaint: NEED LABS/POSS LOW POTASSIUM Time Seen by Provider: 10/02/20 14:15 Source of Information: Reports: Patient, Old Records, RN Notes Reviewed History Limitations: Reports: No Limitations - History of Present Illness INITIAL COMMENTS - FREE TEXT/NARRATIVE: Patient is a 54-year-old female presenting to the emergency department with request of having her potassium checked. She does have a history of liver cirrhosis with liver failure. States last she had a blood work done with her primary care provider and she was found to have a low potassium and elevated lactic acid. It was recommended at that time that she come to the ER for treatment, however she declined. She had a paracentesis done at [facility] in [place] on Friday. She presents today to have her potassium and lactic acid levels checked and treated as needed. She reports that she is had some intermittent headaches, body aches, and back pain. She does have a history of low potassium but has never required IV replacements. She is taking lactulose daily as well as Lasix and spironolactone. Review of her lab work from [facility] on the [facility] information site show that her potassium on of last week was 3.2 and her lactic acid was 3.5. She also has a chronically elevated WBC count. Patient states that she is scheduled to see Dr. Morales on Friday of this week. Her camp advisor is Dr. Man at [facility] in [place]. Headache Pain Score (Numeric/FACES): 7 - Related Data Allergies Allergy/AdvReac Type Severity Reaction Status Date / Time morphine Allergy Intermediate Itching Verified 10/02/20 15:48 tramadol AdvReac Intermediate Hallucinati Verified 10/02/20 15:48 ons Home Meds: Home Meds Albuterol [Ventolin HFA] 2 puff INH ASDIRECTED PRN 04/07/18 [History] Lactulose [Cephulac] 15 ml PO DAILY 09/07/20 [History] Folic Acid 1 mg PO DAILY 10/02/20 [History] Furosemide [Lasix] 20 mg PO DAILY 10/02/20 [History] Potassium Chloride 20 meq PO BID #6 tab.er.prt 10/02/20 [Rx] Spironolactone 50 mg PO DAILY #30 tablet 10/02/20 [Rx] Spironolactone [Aldactone] 25 mg PO DAILY 10/02/20 [History] Thiamine Mononitrate (Vit B1) [Vitamin B-1] 100 mg PO DAILY 10/02/20 [History] predniSONE [Prednisone] 40 mg PO DAILY 10/02/20 [History] Past Medical History HEENT History: Reports: Epistaxis Respiratory History: Reports: Asthma Gastrointestinal History: Reports: Cirrhosis Oncologic (Cancer) History: Reports: Cervix - Past Surgical History HEENT Surgical History: Reports: Oral Surgery GI Surgical History: Reports: Abdominal paracentesis Female Surgical History: Reports: Breast Implant, Section, Other (See Below) Dermatological Surgical History: Reports: Other (See Below) Social & Family History - Family History Family Medical History: No Pertinent Family History - Tobacco Use Tobacco Use Status *Q: Never Tobacco User Second Hand Smoke Exposure: No - Caffeine Use Caffeine Use: Reports: None - Recreational Drug Use Recreational Drug Use: No - Living Situation & Occupation Living situation: Reports: (), Alone Occupation: Unemployed ED ROS GENERAL - Review of Systems Review Of Systems: See Below Constitutional: Reports: Fatigue. Denies: Fever, Chills HEENT: Reports: No Symptoms Respiratory: Reports: No Symptoms Cardiovascular: Reports: No Symptoms Endocrine: Reports: No Symptoms GI/Abdominal: Reports: No Symptoms. Denies: Abdominal Pain, Diarrhea, Nausea, Vomiting : Reports: No Symptoms Musculoskeletal: Reports: Back Pain, Other (Generalized body aches) Skin: Reports: No Symptoms Neurological: Reports: Headache (Intermittent) Psychiatric: Reports: No Symptoms Hematologic/Lymphatic: Reports: No Symptoms Immunologic: Reports: No Symptoms ED EXAM, GENERAL - Physical Exam Exam: See Below Exam Limited By: No Limitations General Appearance: Alert, WD/WN, No Apparent Distress Eye Exam: Bilateral Eye: PERRL, Other (Bilateral scleral icterus) Respiratory/Chest: No Respiratory Distress, Lungs Clear, Normal Breath Sounds, No Accessory Muscle Use, Chest Non-Tender Cardiovascular: Normal Peripheral Pulses, Regular Rate, Rhythm, No Edema, No Gallop, No JVD, No Murmur, No Rub GI/Abdominal: Normal Bowel Sounds, Soft, Non-Tender, No Organomegaly, No Abnormal Bruit, No Mass, Distended (Ascites) Neurological: Alert, Oriented, CN II-XII Intact, Normal Cognition, Normal Gait, Normal Reflexes, No Motor/Sensory Deficits Psychiatric: Normal Affect, Normal Mood Skin Exam: Warm, Dry, Intact, Normal Color, No Rash #1 Interpretation EKG Date: 10/02/20 Time: 14:52 Rhythm: NSR Rate (Beats/Min): 106 [place]: Normal P-Wave: Present QRS: Normal ST-T: Normal QT: Prolonged (borderline) Course - Vital Signs Last Recorded V/S: Last Vital Signs Temp 98.3 F 10/02/20 14:18 Pulse 116 H 10/02/20 14:18 Resp 18 10/02/20 14:18 BP 132/71 10/02/20 14:18 Pulse Ox 97 10/02/20 14:18 - Orders/Labs/Meds Labs: Laboratory Tests 10/02/20 10/02/20 10/02/20 Range/Units 14:35 14:35 14:35 WBC 12.02 H (3.98-10.04) K/mm3 RBC 2.80 L (3.98-5.22) M/mm3 Hgb 8.3 L (11.2-15.7) gm/dl Hct 25.7 L (34.1-44.9) % MCV 91.8 (79.4-94.8) fl MCH 29.6 (25.6-32.2) pg MCHC 32.3 (32.2-35.5) g/dl RDW Std Deviation 50.0 H (36.4-46.3) fL Plt Count 289 (182-369) K/mm3 MPV 9.8 (9.4-12.3) fl Neut % (Auto) 56.6 (34.0-71.1) % Lymph % (Auto) 27.8 (19.3-51.7) % [place] % (Auto) 10.5 (4.7-12.5) % Eos % (Auto) 3.7 (0.7-5.8) Baso % (Auto) 1.2 (0.1-1.2) % Neut # (Auto) 6.81 H (1.56-6.13) K/mm3 Lymph # (Auto) 3.34 (1.18-3.74) K/mm3 [place] # (Auto) 1.26 H (0.24-0.36) K/mm3 Eos # (Auto) 0.44 H (0.04-0.36) K/mm3 Baso # (Auto) 0.15 H (0.01-0.08) K/mm3 Manual Slide Review Abnormal smear PT (9.7-12.0) SECONDS INR Sodium 142 D (136-145) mEq/L Potassium 2.8 L (3.5-5.1) mEq/L Chloride 103 D (98-107) mEq/L Carbon Dioxide 27 (21-32) mEq/L Anion Gap 14.8 (5-15) BUN 10 (7-18) mg/dL Creatinine 1.0 (0.55-1.02) mg/dL Est Cr Clr Drug Dosing 56.18 mL/min Estimated GFR (MDRD) 58 (>60) mL/min BUN/Creatinine Ratio 10.0 L (14-18) Glucose 104 (74-106) mg/dL Lactic Acid 2.5 H* (0.4-2.0) mmol/L Calcium 8.2 L (8.5-10.1) mg/dL Magnesium 1.7 L (1.8-2.4) mg/dl Total Bilirubin 3.4 H (0.2-1.0) mg/dL AST 81 H (15-37) U/L ALT 28 (14-59) U/L Alkaline Phosphatase 211 H (46-116) U/L Ammonia (11-32) umol/L Total Protein 6.9 (6.4-8.2) g/dl Albumin 2.0 L (3.4-5.0) g/dl Globulin 4.9 gm/dL Albumin/Globulin Ratio 0.4 L (1-2) 10/02/20 10/02/20 Range/Units 14:35 15:05 WBC (3.98-10.04) K/mm3 RBC (3.98-5.22) M/mm3 Hgb (11.2-15.7) gm/dl Hct (34.1-44.9) % MCV (79.4-94.8) fl MCH (25.6-32.2) pg MCHC (32.2-35.5) g/dl RDW Std Deviation (36.4-46.3) fL Plt Count (182-369) K/mm3 MPV (9.4-12.3) fl Neut % (Auto) (34.0-71.1) % Lymph % (Auto) (19.3-51.7) % [place] % (Auto) (4.7-12.5) % Eos % (Auto) (0.7-5.8) Baso % (Auto) (0.1-1.2) % Neut # (Auto) (1.56-6.13) K/mm3 Lymph # (Auto) (1.18-3.74) K/mm3 [place] # (Auto) (0.24-0.36) K/mm3 Eos # (Auto) (0.04-0.36) K/mm3 Baso # (Auto) (0.01-0.08) K/mm3 Manual Slide Review PT 18.8 H (9.7-12.0) SECONDS INR 1.78 Sodium (136-145) mEq/L Potassium (3.5-5.1) mEq/L Chloride (98-107) mEq/L Carbon Dioxide (21-32) mEq/L Anion Gap (5-15) BUN (7-18) mg/dL Creatinine (0.55-1.02) mg/dL Est Cr Clr Drug Dosing mL/min Estimated GFR (MDRD) (>60) mL/min BUN/Creatinine Ratio (14-18) Glucose (74-106) mg/dL Lactic Acid (0.4-2.0) mmol/L Calcium (8.5-10.1) mg/dL Magnesium (1.8-2.4) mg/dl Total Bilirubin (0.2-1.0) mg/dL AST (15-37) U/L ALT (14-59) U/L Alkaline Phosphatase (46-116) U/L Ammonia 13 (11-32) umol/L Total Protein (6.4-8.2) g/dl Albumin (3.4-5.0) g/dl Globulin gm/dL Albumin/Globulin Ratio (1-2) Meds: Medications Discontinued Medications Generic Name Dose Route Start Last Admin Trade Name Freq PRN Reason Stop Dose Admin Potassium Chloride 10 meq/ 100 mls @ 100 mls/hr 10/02/20 15:30 10/02/20 17:31 Premix IV 10/02/20 17:29 75 mls/hr Q1H NAYA Administration Sodium Chloride 1,000 mls @ 100 mls/hr 10/02/20 15:26 10/02/20 16:07 Normal Saline IV 10/03/20 01:25 100 mls/hr NOW STA Administration Magnesium Sulfate 2 gm in 50 mls @ 25 mls/hr 10/02/20 15:30 10/02/20 17:31 Magnesium Sulfate In Water 2 Gm/50 Ml IV Not Given Q1H NAYA Magnesium Sulfate 2 gm in 50 mls @ 25 mls/hr 10/02/20 15:43 10/02/20 16:11 Magnesium Sulfate In Water 2 Gm/50 Ml IV 10/02/20 17:42 25 mls/hr ONETIME ONE Administration Potassium Chloride 40 meq 10/02/20 15:27 10/02/20 15:49 Klor-Con M20 PO 10/02/20 15:28 40 meq ONETIME ONE Administration - Re-Assessments/Exams Free Text/Narrative Re-Assessment/Exam: 10/02/20 15:53 Hematology was significant for a WBC elevated at 12.02, hemoglobin low at 8.3, potassium low at 2.8, lactic acid elevated at 2.5, calcium 8.2, magnesium 1.7, total bili 3.4, AST 81, alkaline phosphatase 211, albumin 2.0. Spoke with the camp advisor on-call at [facility] in [place], Dr. Solo. He recommended that we treat the potassium but that no treatment is needed for the lactic acid. He did not recommend that we replace albumin at this time. I have ordered KCl 20 mill equivalents IV x 2 bags as well as magnesium 2 g IV to be given now. We will also give her 40 mEq of oral potassium. I will send prescription for potassium 20 mEq twice daily for [address] Solo did recommend that she have her lab work rechecked at the conclusion of the potassium treatment to ensure that it has normalized. Departure - Departure Time of Disposition: 19:00 Disposition: Home, Self-Care 01 Condition: Good Clinical Impression: Hypokalemia, Hypomagnesemia, Elevated lactic acid level Cirrhosis Qualifiers: Hepatic cirrhosis type: unspecified hepatic cirrhosis Ascites presence: with ascites Qualified Code(s): K74.60 - Unspecified cirrhosis of liver - Discharge Information *PRESCRIPTION DRUG MONITORING PROGRAM REVIEWED*: No *COPY OF PRESCRIPTION DRUG MONITORING REPORT IN PATIENT JUSTEN: No Prescriptions: Potassium Chloride 20 meq PO BID #6 tab.er.prt Spironolactone 50 mg PO DAILY #30 tablet Instructions: Hypomagnesemia, Hypokalemia, Cirrhosis, Ascites Referrals: Kesha Drew NP [Primary Care Provider] - Harsh Morales MD [Physician] - Forms: ED Department Discharge Additional Instructions: You were seen in the emergency department today for evaluation with regards to low potassium and elevated lactic acid. Blood work was completed in the ER. Your potassium was found to be low at 2.8. Your lactic acid was slightly elevated 2.5. Your case was discussed with the camp advisor on-call at [facility], Dr. Mark. He recommended treatment of the potassium. He also recommended that we increase your spironolactone to 50 mg daily from 25 mg daily. No treatment is required for elevated lactic acid. While in the ER, you received an IV infusion of potassium and magnesium. You also received oral potassium in ER. A prescription for potassium has been sent to [id number]. Take these as prescribed. I have also sent a prescription for spironolactone 50 mg daily. If you would like, you can take 2 tabs of your spiralactone 25 mg daily until gone and then begin taking the 50mg tabs daily. Continue your other medications as previously prescribed. Follow-up with Dr. Morales as scheduled to have labs rechecked. Return to ER as needed. Sepsis Event Note (ED) - Evaluation Sepsis Screening Result: No Definite Risk
[2020-10-02] MEDS: Potassium Chloride 10 MEQ in Premix Bag 1 BAG IV SCH ×2 (16:08→17:31)
== END 2020-10-02 19:05 | disposition home or self-care (01) ==
LOC: JD.ED 14:11
DX: E87.6 Hypokalemia (principal); K74.60 Unspecified cirrhosis of liver; E83.42 Hypomagnesemia; R74.02 Elevation of levels of lactic acid dehydrogenase [LDH]; J45.909 Unspecified asthma, uncomplicated; Z79.899 Other long term (current) drug therapy; Z88.5 Allergy status to narcotic agent
CPT/HCPCS: 36415; 80053; 82140; 83605; 83735; 85025; 85610; 93005; 96365; 96366; 96368; 99285; A9270; J3475; J3480; J7030; 93010; 99284

== ENCOUNTER 2020-11-13 14:58 | Emergency (ER) | payer SELFPAY ==
--- NOTE | 2020-11-13 16:24 | EDM.PDOC ---
ED HPI GENERAL MEDICAL PROBLEM - General Chief Complaint: Respiratory Problem Stated Complaint: FEVER/BODY ACHE Time Seen by Provider: 11/13/20 15:42 Source of Information: Reports: Patient History Limitations: Reports: No Limitations - History of Present Illness INITIAL COMMENTS - FREE TEXT/NARRATIVE: 55-year-old female presents to the emergency department today with complaints of body aches, fever and chills. The patient states that she was at her visit with her primary care provider today and requested to have lab work completed however he felt she needed to be sent to the emergency department to be tested for Covid. Patient states that 3 days ago she began feeling unwell. It started out as having body aches for most of the day. 2 days ago she developed cough that she contributed to allergies and postnasal drip however she states she had a temp of 101 throughout the day and continued to have body aches. She states that 1 day ago she continued with the body aches and started feeling lightheaded and weak when she was up and ambulating. She states that last night throughout the night she was up several times with urinary frequency. She denies any dysuria or burning with the frequency however she states that she felt it kept her up throughout the night. She does have a significant medical history as she does have cirrhosis of the liver. Generalized Pain Score (Numeric/FACES): 5 - Related Data Allergies Allergy/AdvReac Type Severity Reaction Status Date / Time morphine Allergy Intermediate Itching Verified 10/02/20 15:48 tramadol AdvReac Intermediate Hallucinati Verified 10/02/20 15:48 ons Home Meds: Home Meds Albuterol [Ventolin HFA] 2 puff INH ASDIRECTED PRN 04/07/18 [History] Lactulose [Cephulac] 15 ml PO TID 09/07/20 [History] Folic Acid 1 mg PO DAILY 10/02/20 [History] Furosemide [Lasix] 80 mg PO DAILY 10/02/20 [History] Potassium Chloride 20 meq PO BID #6 tab.er.prt 10/02/20 [Rx] Spironolactone [Aldactone] 100 mg PO DAILY 10/02/20 [History] Thiamine Mononitrate (Vit B1) [Vitamin B-1] 100 mg PO DAILY 10/02/20 [History] Past Medical History HEENT History: Reports: Epistaxis Respiratory History: Reports: Asthma Gastrointestinal History: Reports: Cirrhosis Oncologic (Cancer) History: Reports: Cervix - Past Surgical History HEENT Surgical History: Reports: Oral Surgery GI Surgical History: Reports: Abdominal paracentesis Female Surgical History: Reports: Breast Implant, Section Dermatological Surgical History: Reports: Other (See Below) Social & Family History - Family History Family Medical History: No Pertinent Family History - Tobacco Use Tobacco Use Status *Q: Never Tobacco User - Caffeine Use Caffeine Use: Reports: Tea - Recreational Drug Use Recreational Drug Use: No - Living Situation & Occupation Living situation: Reports: (), Alone Occupation: Unemployed ED ROS GENERAL - Review of Systems Review Of Systems: See Below Constitutional: Reports: Fever, Chills, Malaise, Weakness. Denies: Diaphoresis, Decreased Appetite HEENT: Reports: Rhinitis (with post nasal drip) Respiratory: Reports: Cough. Denies: Shortness of Breath, Wheezing, Pleuritic Chest Pain, Sputum Cardiovascular: Reports: Lightheadedness. Denies: Chest Pain, Edema, Palpitations, Syncope Endocrine: Reports: No Symptoms GI/Abdominal: Reports: No Symptoms. Denies: Abdominal Pain, Constipation, Diarrhea, Decreased Appetite, Nausea, Vomiting : Reports: Frequency. Denies: Dysuria, Flank Pain, Hematuria, Incontinence Musculoskeletal: Reports: Other (generalized body aches) Skin: Reports: No Symptoms Neurological: Reports: Dizziness. Denies: Headache, Numbness, Syncope, Tingling Psychiatric: Reports: No Symptoms Hematologic/Lymphatic: Reports: No Symptoms Immunologic: Reports: No Symptoms ED EXAM, GENERAL - Physical Exam Exam: See Below Exam Limited By: No Limitations General Appearance: Alert, WD/WN, No Apparent Distress Ears: Normal External Exam, Hearing Grossly Normal Nose: Normal Inspection, Normal Mucosa Throat/Mouth: Normal Inspection, Normal Lips, Normal Voice, No Airway Compromise Head: Atraumatic, Normocephalic Neck: Normal Inspection, Supple Respiratory/Chest: No Respiratory Distress, Lungs Clear, Normal Breath Sounds, No Accessory Muscle Use, Chest Non-Tender Cardiovascular: Normal Peripheral Pulses, Regular Rate, Rhythm, No Edema, No Murmur Peripheral Pulses: 2+: Radial (L), Radial (R) GI/Abdominal: Normal Bowel Sounds, Soft, Non-Tender, No Distention (Female) Exam: Deferred Rectal (Female) Exam: Deferred Back Exam: Normal Inspection, Full Range of Motion Extremities: Normal Inspection, Normal Range of Motion, Non-Tender, No Pedal Edema, Normal Capillary Refill Neurological: Alert, Oriented, Normal Cognition Psychiatric: Normal Affect, Normal Mood Skin Exam: Warm, Dry, Intact, Normal Color, No Rash Lymphatic: No Adenopathy Course - Vital Signs Text/Narrative:: 55-year-old female who developed generalized body aches 3 days ago which progressed into a dry nonproductive cough sinus congestion, and feelings of being weak and dizzy. Last night she developed urinary frequency as she felt she was up all night voiding however she denied any symptoms of burning or incontinence. Denies having Covid in the past has also denied being around anyone who has had Covid that she is aware of. Patient does have a significant history of cirrhosis of the liver for which she takes lactulose and she is also taking diuretics. I have ordered labs and a test for influenza A, influenza B and Covid. Last Recorded V/S: Last Vital Signs Temp 98.2 F 11/13/20 15:33 Pulse 101 H 11/13/20 15:33 Resp 20 11/13/20 15:33 BP 132/83 11/13/20 15:33 Pulse Ox 100 11/13/20 15:33 - Orders/Labs/Meds Labs: Laboratory Tests 11/13/20 11/13/20 11/13/20 Range/Units 16:01 16:10 16:28 WBC 7.64 (3.98-10.04) K/mm3 RBC 3.45 L (3.98-5.22) M/mm3 Hgb 9.0 L (11.2-15.7) gm/dl Hct 28.1 L (34.1-44.9) % MCV 81.4 D (79.4-94.8) fl MCH 26.1 (25.6-32.2) pg MCHC 32.0 L (32.2-35.5) g/dl RDW Std Deviation 43.3 (36.4-46.3) fL Plt Count 303 (182-369) K/mm3 MPV 9.8 (9.4-12.3) fl Neut % (Auto) 60.2 (34.0-71.1) % Lymph % (Auto) 26.6 (19.3-51.7) % Hyde % (Auto) 9.9 (4.7-12.5) % Eos % (Auto) 1.4 (0.7-5.8) Baso % (Auto) 1.8 H (0.1-1.2) % Neut # (Auto) 4.59 (1.56-6.13) K/mm3 Lymph # (Auto) 2.03 (1.18-3.74) K/mm3 Hyde # (Auto) 0.76 H (0.24-0.36) K/mm3 Eos # (Auto) 0.11 (0.04-0.36) K/mm3 Baso # (Auto) 0.14 H (0.01-0.08) K/mm3 Sodium 135 L (136-145) mEq/L Potassium 3.4 L (3.5-5.1) mEq/L Chloride 98 (98-107) mEq/L Carbon Dioxide 29 (21-32) mEq/L Anion Gap 11.4 (5-15) BUN 16 (7-18) mg/dL Creatinine 1.3 H (0.55-1.02) mg/dL Est Cr Clr Drug Dosing 42.72 mL/min Estimated GFR (MDRD) 43 (>60) mL/min BUN/Creatinine Ratio 12.3 L (14-18) Glucose 96 (74-106) mg/dL Calcium 9.3 (8.5-10.1) mg/dL Magnesium 2.1 (1.8-2.4) mg/dl Total Bilirubin 1.6 H (0.2-1.0) mg/dL AST 69 H (15-37) U/L ALT 38 (14-59) U/L Alkaline Phosphatase 179 H (46-116) U/L C-Reactive Protein 0.5 (<1.0) mg/dL Total Protein 8.6 H (6.4-8.2) g/dl Albumin 2.6 L (3.4-5.0) g/dl Globulin 6.0 gm/dL Albumin/Globulin Ratio 0.4 L (1-2) Urine Color (Yellow) Urine Appearance (Clear) Urine pH (5.0-8.0) Ur Specific Scammon (1.005-1.030) Urine Protein (Negative) Urine Glucose (UA) (Negative) Urine Ketones (Negative) Urine Occult Blood (Negative) Urine Nitrite (Negative) Urine Bilirubin (Negative) Urine Urobilinogen (0.2-1.0) Ur Leukocyte Esterase (Negative) Urine RBC (0-5) /hpf Urine WBC (0-5) /hpf Ur Squamous Epith Cells (0-5) /hpf Urine Bacteria (FEW) /hpf Urine Mucus (FEW) /hpf Influenza Type A RNA Negative (NEGATIVE) Influenza Type B RNA Negative (NEGATIVE) SARS-CoV-2 RNA (DMITRY) Negative (NEGATIVE) 11/13/20 Range/Units 16:30 WBC (3.98-10.04) K/mm3 RBC (3.98-5.22) M/mm3 Hgb (11.2-15.7) gm/dl Hct (34.1-44.9) % MCV (79.4-94.8) fl MCH (25.6-32.2) pg MCHC (32.2-35.5) g/dl RDW Std Deviation (36.4-46.3) fL Plt Count (182-369) K/mm3 MPV (9.4-12.3) fl Neut % (Auto) (34.0-71.1) % Lymph % (Auto) (19.3-51.7) % Hyde % (Auto) (4.7-12.5) % Eos % (Auto) (0.7-5.8) Baso % (Auto) (0.1-1.2) % Neut # (Auto) (1.56-6.13) K/mm3 Lymph # (Auto) (1.18-3.74) K/mm3 Hyde # (Auto) (0.24-0.36) K/mm3 Eos # (Auto) (0.04-0.36) K/mm3 Baso # (Auto) (0.01-0.08) K/mm3 Sodium (136-145) mEq/L Potassium (3.5-5.1) mEq/L Chloride (98-107) mEq/L Carbon Dioxide (21-32) mEq/L Anion Gap (5-15) BUN (7-18) mg/dL Creatinine (0.55-1.02) mg/dL Est Cr Clr Drug Dosing mL/min Estimated GFR (MDRD) (>60) mL/min BUN/Creatinine Ratio (14-18) Glucose (74-106) mg/dL Calcium (8.5-10.1) mg/dL Magnesium (1.8-2.4) mg/dl Total Bilirubin (0.2-1.0) mg/dL AST (15-37) U/L ALT (14-59) U/L Alkaline Phosphatase (46-116) U/L C-Reactive Protein (<1.0) mg/dL Total Protein (6.4-8.2) g/dl Albumin (3.4-5.0) g/dl Globulin gm/dL Albumin/Globulin Ratio (1-2) Urine Color Yellow (Yellow) Urine Appearance Slt cloudy H (Clear) Urine pH 6.0 (5.0-8.0) Ur Specific Sc[place]mon 1.025 (1.005-1.030) Urine Protein 2+ H (Negative) Urine Glucose (UA) Negative (Negative) Urine Ketones Negative (Negative) Urine Occult Blood 2+ H (Negative) Urine Nitrite Negative (Negative) Urine Bilirubin Negative (Negative) Urine Urobilinogen 0.2 (0.2-1.0) Ur Leukocyte Esterase Negative (Negative) Urine RBC 40-50 H (0-5) /hpf Urine WBC 0-5 (0-5) /hpf Ur Squamous Epith Cells 0-5 (0-5) /hpf Urine Bacteria Few (FEW) /hpf Urine Mucus Moderate H (FEW) /hpf Influenza Type A RNA (NEGATIVE) Influenza Type B RNA (NEGATIVE) SARS-CoV-2 RNA (DMITRY) (NEGATIVE) - Re-Assessments/Exams Free Text/Narrative Re-Assessment/Exam: 11/13/20 17:18 Hematology reveals a WBC of 7.64, hemoglobin 9.0, hematocrit 28.1 Chemistry reveals a sodium of 135, potassium 3.4, anion gap 11.4, BUN 16, creatinine 1.3, glucose 96, magnesium 2.1, total bili 1.6, AST 69, ALT 38, alk phos 179, C-reactive protein 0.5 Urinalysis reveals 2+ protein, 2+ occult blood, nitrite negative, leukocyte Estrace negative Serology reveals influenza type a negative influenza type B-, SARS Covid 2 RNA negative Departure - Departure Time of Disposition: 17:18 Disposition: Home, Self-Care 01 Condition: Good Clinical Impression: Viral upper respiratory tract infection with cough - Discharge Information Instructions: Upper Respiratory Infection, Adult Referrals: Harsh Morales MD [Primary Care Provider] - Forms: ED Department Discharge Additional Instructions: You were seen in the emergency department today with complaints of upper respiratory symptoms, cough, postnasal drip, and generalized body aches. Labs were completed which were essentially unremarkable you do not have an elevated white blood cell count. Your hemoglobin was 9.0 today however this looks like i t is kind of a where your normal is for you. There is no signs of infection or inflammation anywhere. Your urine was unremarkable and did not show any signs of infection. And your test for influenza A, B and Covid were all negative. It is likely you have a viral upper respiratory infection. Recommend that you go home and rest, drink plenty of fluids to stay hydrated and flush your system and make Tylenol for generalized body aches. Should your condition worsen or change do not hesitate returning to the emergency department. Sepsis Event Note (ED) - Evaluation Sepsis Screening Result: No Definite Risk - Focused Exam Vital Signs: Vital Signs Temp Pulse Resp BP Pulse Ox 11/13/20 15:33 98.2 F 101 H 20 132/83 100
[2020-11-13 16:55] LABS: CORONAVIRUS COVID-19 NAA NEGATIVE (NEGATIVE)
== END 2020-11-13 17:30 | disposition home or self-care (01) ==
LOC: JD.ED 14:58
DX: J06.9 Acute upper respiratory infection, unspecified (principal); J45.909 Unspecified asthma, uncomplicated; Z88.5 Allergy status to narcotic agent; Z79.899 Other long term (current) drug therapy; Z20.822 Contact with and (suspected) exposure to COVID-19
CPT/HCPCS: 0240U; 36415; 80053; 81001; 83735; 85025; 86140; 99283; 99282